=== PATIENT | male | born 1965 | race Hispanic/Latino ===

== ENCOUNTER 2018-09-17 17:38 | Emergency (ER) | payer SELFPAY ==
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
== END 2018-09-17 20:19 | disposition home or self-care (01) ==
LOC: ER 17:38
DX: M54.5 Low back pain (principal); V49.50XA Passenger injured in collision with unspecified motor vehicles in traffic accident, initial encounter
CPT/HCPCS: 70450; 71250; 72125; 99284